=== PATIENT | male | born 1985 ===

== ENCOUNTER 2024-10-08 15:44 | Emergency (ER) | payer OTHER, SELFPAY ==
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
[2024-10-08 15:54] VITALS: BP 114/76; PULSE 92; RESP 16; TEMP 36.8; O2SAT 96
[2024-10-08 16:08] VITALS: BP 136/85; PULSE 99; O2SAT 99
[2024-10-08 16:09] VITALS: BP 114/76; PULSE 92; RESP 16; TEMP 36.8; O2SAT 96; BMI 24.2
--- NOTE | 2024-10-08 16:18 | ECG_ITS ---
Test Reason : CHEST DISCOMFORT Blood Pressure : */* mmHG Vent. Rate : 90 BPM Atrial Rate : 90 BPM P-R Int : 120 ms QRS Dur : 78 ms QT Int : 374 ms P-R-T Axes : 56 54 29 degrees QTcB Int : 457 ms Normal sinus rhythm Normal ECG No previous ECGs available Referred By: Willy Segal Electronically Signed By: LISSETH MCARTHUR MD
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
[2024-10-08 16:39] LABS: MANUAL DIFF FLAG NO
[2024-10-08 16:44] LABS: Basophils Percent Auto 0.5 % (0-2); Eosinophils Absolute Auto 0.1 X10*3/uL (0.0-0.4); Eosinophils Percent Auto 0.8 % (0-4); Hematocrit 38.7 % (42.0-52.0); Hemoglobin 14.3 g/dl (14.0-18.0); Imm Gran Abs Auto 0.02 X10*3/uL (0.00-0.03); Imm Gran Pct Auto 0.3 % (0.0-0.4); Lymphocytes Absolute Auto 1.9 X10*3/uL (1.2-4.9); Mean Corpuscular Hemoglobin 30.3 pg (27.0-33.0); Mean Platelet Volume 11.4 fL (9.4-12.4); Monocytes Absolute Auto 0.5 X10*3/uL (0.1-1.2); Monocytes Percent Auto 6.8 % (2-11); Neutrophils Absolute Auto 4.8 x10*3/uL (2.0-8.3); Neutrophils Percent Auto 65.6 % (45-73); Platelet Count 194 X10*3/uL (160-400); Red Blood Count 4.72 X10*6/uL (4.60-5.80); Red Cell Distribution Width 12.7 % (11.0-16.0); White Blood Count 7.3 X10*3/uL (4.8-10.8)
[2024-10-08] MEDS: 0.9 % Sodium Chloride 1,000 ML 999 ML IV (16:44)
[2024-10-08 16:53] LABS: Ethanol < 10 mg/dL
[2024-10-08 16:59] LABS: Alanine Aminotransferase 17 U/L (0-40); Albumin Level 4.3 g/dL (3.5-5.0); Alkaline Phosphatase 91 U/L (39-117); Anion Gap 15 (12-20); Aspartate Amino Transferase 18 U/L (5-37); Bilirubin Total 0.6 mg/dL (0.0-1.0); Blood Urea Nitrogen 19 mg/dL (9-16); Carbon Dioxide 24 mmol/L (22-29); Chloride 99 mmol/L (96-108); Creatinine Clr Calc Pharmacy 93.1; Estimated Glomerular Filt Rate > 60; Glucose Random 447 mg/dL (60-115); Potassium 3.7 mmol/L (3.3-5.1); Sodium 134 mmol/L (135-145); Total Protein 7.3 g/dL (6.5-8.0)
[2024-10-08 17:03] LABS: Troponin-I High Sensitivity < 2.7 ng/L (<3.5-35.0)
[2024-10-08] MEDS: Ketorolac Tromethamine 15 MG/ML VIAL 10 MG IVPUSH (18:35)
[2024-10-08 18:43] VITALS: BP 123/80; PULSE 83; RESP 15; TEMP 36.7; O2SAT 99
[2024-10-08 19:14] VITALS: BP 123/80; PULSE 83; RESP 15; TEMP 36.7; O2SAT 99
[2024-10-09 08:13] LABS: Glucose, Whole Blood 440 mg/dL (60-115)
[2024-10-09 08:14] LABS: Glucose, Whole Blood 370 mg/dL (60-115)
== END 2024-10-08 19:16 | disposition home or self-care (01) ==
PROVIDERS: Emergency Provider Emergency Medicine
DX: S13.4XXA Sprain of ligaments of cervical spine, initial encounter (principal); M54.2 Cervicalgia; R07.89 Other chest pain; E11.9 Type 2 diabetes mellitus without complications; R42 Dizziness and giddiness; M54.50 Low back pain, unspecified; M25.511 Pain in right shoulder; M79.604 Pain in right leg; V53.5XXA Driver of pick-up truck or van injured in collision with car, pick-up truck or van in traffic accident, initial encounter; Y93.9 Activity, unspecified; Y92.410 Unspecified street and highway as the place of occurrence of the external cause; Y99.8 Other external cause status; Z79.84 Long term (current) use of oral hypoglycemic drugs; Z79.899 Other long term (current) drug therapy; Z51.81 Encounter for therapeutic drug level monitoring
CPT/HCPCS: 36415; 71046; 72100; 72125; 80053; 80307; 82947; 84484; 85025; 93005; 96361; 96374; 99284; 99285; J1885

== ENCOUNTER → 2024-10-08 16:18 | Outpatient (BNV) | payer OTHER, SELFPAY | PROVIDERS: Emergency Provider Emergency Medicine; Visit Provider Internal Medicine Cardiovascular Disease | DX: R07.89 Other chest pain (principal) | CPT/HCPCS: 93010 ==

== ENCOUNTER → 2024-10-08 16:40 | Outpatient (BNV) | payer SELFPAY | PROVIDERS: Emergency Provider Emergency Medicine; Visit Provider Radiology Diagnostic Radiology | DX: M54.2 Cervicalgia (principal); M47.816 Spondylosis without myelopathy or radiculopathy, lumbar region; R07.89 Other chest pain | CPT/HCPCS: 71046; 72100; 72125 ==